=== PATIENT | female | born 1995 | race Caucasian/White ===

== ENCOUNTER 2017-06-19 18:12 | Emergency (ER) | payer BC ==
[~2017-06-19] VITALS: Ht 160 cm; Wt 61.2 kg
--- NOTE | 2017-06-19 18:26 | Emergency Room Report ---
History of Present Illness General Chief Complaint: Nausea, Vomiting, and Diarrhea Source: Patient Present Illness HPI 21-year-old female presents to the emergency department complaining of nausea, vomiting and cramping lower with one episode of loose stool since this a.m. Patient denies fever she reports chills. She reports pain as 5/10 in severity cramping pain which is localized epigastrically and exacerbated during episodes of vomiting. Patient reports approximately 6 episodes of vomiting denies blood in the vomit or stool she denies black tarry stools. She denies she reports she had her period 2 weeks ago. She denies recent travel or ill contacts. Denies drug use. Denies CP, Palpitations, LOC, AMS, dizziness, Changes in Vision, Sensation, paresthesias, or a sudden severe headache. Allergies: Coded Allergies: No Known Allergies (Unverified , 06/19/17) Patient History Past Medical History: see triage record Past Surgical History: none Pertinent Family History: none Last Menstrual Period: 06/10/17 Immunizations: UTD Reviewed Nursing Documentation: PMH: Agreed, PSxH: Agreed Nursing Documentation-PMH Past Medical History: No History, Except For Hx Asthma: Yes Review of Systems All Other Systems: negative except mentioned in HPI Physical Exam Vital Signs Date Time Temp Pulse Resp B/P (MAP) Pulse Ox O2 Delivery O2 Flow Rate FiO2 06/19/17 18:20 96.8 84 18 101/79 100 Room Air Sp02 EP Interpretation: reviewed, normal General Appearance: alert, GCS 15, non-toxic, mild distress Head: normocephalic, atraumatic Eyes: bilateral eye normal inspection, bilateral eye PERRL ENT: hearing grossly normal, normal voice Neck: full range of motion, supple/symm/no masses Respiratory: lungs clear, normal breath sounds, speaking full sentences Cardiovascular #1: regular rate, rhythm Gastrointestinal: normal bowel sounds, non tender, soft, other - Negative [place] signs, Negative MacBurney's sign, Negative Rosvigns Sign, Negative Psoas , No Peritoneal signs. Rectal: deferred Genitourinary: normal inspection, no CVA tenderness Musculoskeletal: back normal, gait/station normal, normal range of motion, non- tender Neurologic: alert, oriented x3, responsive, motor strength/tone normal, sensory intact, speech normal Skin: normal color, no rash, warm/dry, well hydrated Medical Decision Making PA Attestation Dr. manriquez is my supervising Physician whom patient management has been discussed with. Diagnostic Impression: Primary Impression: Nausea, vomiting, and diarrhea Additional Impression: Dehydration, mild ER Course 21-year-old female presents to the emergency department complaining of nausea, vomiting and cramping lower with one episode of loose stool since this a.m. Patient denies fever she reports chills. She reports pain as 5/10 in severity cramping pain which is localized epigastrically and exacerbated during episodes of vomiting. Patient reports approximately 6 episodes of vomiting denies blood in the vomit or stool she denies black tarry stools. She denies she reports she had her period 2 weeks ago. She denies recent travel or ill contacts. Denies drug use. Denies CP, Palpitations, LOC, AMS, dizziness, Changes in Vision, Sensation, paresthesias, or a sudden severe headache. . Ddx considered but are not limited to GE, colitis, acute appy, SBO, Cyclical Vomiting secondary to THC, * Vital signs: pt. is afebrile, H&PE are most consistent with GE most likely viral in etiology, no evidence to suggest acute abdomen on physical exam. ORDERS: -UA: some bacteria in the presence of squamous epithlial cells and no inflammatory marker elevation suggests contamination : official micro--no Growth after 24 hours. -Urine Hcg: Negative ED INTERVENTIONS: -1000 NS iv hydration -Zofran 4mg -GI Cocktail : Mylanta, Lidocaine, Bentyl -Pepcid PO -Toradol IV -I do not identify an emergent condition at this time. With current presentation , pt. is stable for close outpatient follow up and conservative treatment. D/ w pt. to return promptly to ED with worsening or new symptoms.- Pt. (and or responsible republican) verbalizes' understanding and agreement with proposed treatment plan. DISCHARGE: At this time pt. is stable for d/c to home. Will provide printed patient care instructions, and any necessary prescriptions. Care plan and follow up instructions have been discussed with the patient prior to discharge. Labs Test 06/19/17 21:50 Urine Color Yellow Urine Appearance Clear Urine pH 5 (4.5-8.0) Urine Specific [place] 1.025 (1.005-1.035) Urine Protein 3+ (NEGATIVE) Urine Glucose (UA) Negative (NEGATIVE) Urine Ketones Negative (NEGATIVE) Urine Occult Blood Negative (NEGATIVE) Urine Nitrite Negative (NEGATIVE) Urine Bilirubin Negative (NEGATIVE) Urine Urobilinogen Normal MG/DL (0.0-1.0) Urine Leukocyte Esterase Negative (NEGATIVE) Urine RBC 0-2 /HPF (0 - 2) Urine WBC 2-4 /HPF (0 - 2) Urine Squamous Epithelial Cells Few /LPF (NONE/OCC) Urine Bacteria Moderate /HPF (NONE) Urine Fine Granular Casts 2-4 /LPF (NONE) Urine HCG, Qualitative Negative Last Vital Signs Date Time Temp Pulse Resp B/P (MAP) Pulse Ox O2 Delivery O2 Flow Rate FiO2 06/19/17 18:20 96.8 84 18 101/79 100 Room Air Disposition: HOME, SELF-CARE Condition: Stable Scripts Mag Hydrox/Al Hydrox/Simeth (ALUM-MAG HYDROXIDE-SIMETH LIQ) 360 Ml Oral.susp 20 ML PO TID, #360 ML Prov: Abbie Escalona 06/19/17 Dicyclomine Hcl* (BENTYL*) 10 Mg Capsule 10 MG ORAL TID for 2 Days, #6 CAP Prov: Abbie Escalona 06/19/17 Ranitidine Hcl* (ZANTAC*) 150 Mg Tablet 150 MG ORAL TWICE A DAY for 7 Days, #14 TAB Prov: Abbie Escalona 06/19/17 Ondansetron Odt* (ZOFRAN ODT*) 4 Mg Tab.rapdis 4 MG ORAL Q6H Y for Nausea & Vomiting, #20 TAB Prov: Abbie Escalona 06/19/17 Patient Instructions: Nausea and Vomiting, Adult Additional Instructions: Take medications as directed. Follow up with a Primary Care Provider in 3-5 days, even if your symptoms have resolved. --Please review list of primary care clinics, if you do not already have a primary care provider Return sooner to ED if new symptoms occur, or current symptoms become worse. - Please note that this Emergency Department Report was dictated using [employer] consultant technology software, occasionally this can lead to erroneous entry secondary to interpretation by the dictation equipment. Abbie Escalona Jun 19, 2017 18:26
[2017-06-19] MEDS ORDERED: Mylanta II UD 30ml ORAL ONE (18:45)
[2017-06-19] MEDS ORDERED: Lidocaine 2% Visc 15ml soln ORAL ONE (18:45)
[2017-06-19] MEDS ORDERED: Dicyclomine HCl 10mg/5ml oral soln ORAL ONE (18:45)
[2017-06-19 20:00] VITALS: BP 107/68
[2017-06-19] MEDS ORDERED: Ketorolac 60mg Inj IV ONE (21:15)
[2017-06-19] MEDS ORDERED: BENTYL10 MG ORAL (21:51)
[2017-06-19] MEDS ORDERED: ALUM-MAG HYDRO360 ML PO (21:51)
[2017-06-19] MEDS ORDERED: ZANTAC150 MG ORAL (21:51)
[2017-06-19] MEDS ORDERED: ZOFRAN ODT4 MG ORAL (21:51)
[2017-06-19 22:00] VITALS: BP 120/86
[2017-06-19 22:16] LABS: APPEARANCE,URINE CLEAR; BILIRUBIN, URINE NEGATIVE (NEGATIVE); GLUCOSE, URINE (UA) NEGATIVE (NEGATIVE); KETONES,URINE NEGATIVE (NEGATIVE); LEUKOCYTE ESTERASE ,URINE NEGATIVE (NEGATIVE); NITRITE,URINE NEGATIVE (NEGATIVE); PH,URINE 5 (4.5-8.0); PROTEIN,URINE 3+ (NEGATIVE); UROBILINOGEN,URINE NORMAL MG/DL (0.0-1.0)
[2017-06-19 22:20] LABS: COLOR,URINE YELLOW
[2017-06-20] MEDS ORDERED: NITROFURANTOIN100 M2 ORAL (22:32)
== END 2017-06-19 22:00 | disposition home or self-care (01) ==
LOC: EMR 18:25
DX: R11.2 Nausea with vomiting, unspecified (principal); R19.7 Diarrhea, unspecified; E86.0 Dehydration; J45.909 Unspecified asthma, uncomplicated
CPT/HCPCS: 81003; 81025; 87086; 96361; 96374; 96375; 99284; J2405